=== PATIENT | female | born 1985 | race Caucasian/White ===

== ENCOUNTER 2021-01-04 15:16 | Emergency (ER) | payer OTHER, SELFPAY ==
--- NOTE | ~2021-01-04 | CT_ITS ---
EXAMINATION: CT abdomen pelvis wo con DATE: 01/04/2021 17:07 INDICATION: Right flank pain. Urinary frequency. TECHNIQUE: Computed tomography (CT) of the abdomen and pelvis was performed without intravenous contr ast. Automated exposure control and iterative reconstruction technique were employed. Exam dose: 177 .83 mGy-cm total exam DLP. COMPARISON: None. FINDINGS: The lung bases are clear of infiltrate or consolidation. Normal heart size. No pericardial or pleural effusion. The liver, gallbladder, bile ducts, spleen, pancreas and pancreatic duct are unremarkable. There is asymmetric right renal enlargement with perinephric stranding, suggesting right pyelonephrit is. No apparent renal mass lesion is noted on this limited noncontrast examination. No ureteral calculus or hydroureteronephrosis is detected. Normal caliber of the abdominal aorta. No intraperitoneal or retroperitoneal or pelvic mass lesion o r lymphadenopathy. The urinary bladder and uterus and adnexal areas are unremarkable. There is mild free fluid in the pelvic cul de sac. No evidence of appendicitis. No bowel obstruction or intraperitoneal free air. Included skeletal structures are unremarkable. IMPRESSION: Right nephromegaly and right perinephric stranding, suggesting right pyelonephritis Reviewed, dictated and finalized at [facility]. Reviewed, dictated and finalized at [facility]. IMPRESSION: Right nephromegaly and right perinephric stranding, suggesting rig ht pyelonephritis
[2021-01-04 15:19] VITALS: BP 124/88; PULSE 98; RESP 18; TEMP 37.3; O2SAT 99
[2021-01-04 15:38] LABS: Basophils Percent Auto 0.4 % (0.2-1.2); Eosinophils Percent Auto 0.2 % (0-4.4); Hematocrit 41.7 % (37.0-47.0); Hemoglobin 14.5 g/dL (12.0-15.0); Immature Granulocyte Absolute 0.02 K/mm3 (0.00-0.031); Immature Granulocyte Percent A 0.2 % (0-0.5); Lymphocytes Absolute Auto 0.86 K/mm3 (0.9-3.2); Lymphocytes Percent Auto 8.6 % (18.3-44.2); Mean Corpuscular HGB Conc 34.8 g/dl (32-36); Mean Corpuscular Hemoglobin 32.5 pg (26-34); Mean Corpuscular Volume 93.5 fl (80-100); Mean Platelet Volume 9.4 fl (7.4-10.4); Monocytes Percent Auto 9.8 % (2.6-8.5); Neutrophils Absolute Auto 8.1 K/mm3 (1.3-6.7); Neutrophils Percent Auto 80.8 % (45.5-73.1); Platelet Count Result 226 k/mm3 (150-375); Red Blood Count 4.46 M/mm3 (4.2-5.4)
[2021-01-04 15:47] LABS: Add Urine Microscopic? YES; Appearance Urine Clear (Clear); Bacteria Urine Trace /hpf; Bilirubin Urine Negative (Negative); Blood Urine 3+ (Negative); Color Urine Yellow (Yellow); Glucose Urine UA Negative (Negative); Ketones Urine Negative (Negative); Leukocyte Esterase Ur 1+ LEU/UL (Negative); Mucus Urine Rare /lpf; Nitrate Urine Negative (Negative); Protein Urine Negative (Negative); RBC Urine 21-50 /hpf (0-2); Specific Grav Ur 1.011 (1.001-1.035); Squamous Epithelial Cell Urine Moderate /hpf (Few); Urobilinogen Urine Negative mg/dL (<2.0)
[2021-01-04 15:51] LABS: Anion Gap 12 mmol/L (8-16); Blood Urea Nitrogen 8 mg/dL (7-17); Carbon Dioxide 22 mmol/L (22-30); Chloride 98 mmol/L (98-107); Estimated CRCL calculation 103 ml/min; Estimated Glomerular Filt Rate > 60; Glucose 136 mg/dL (65-110); Potassium 3.9 mmol/L (3.4-5.0); Sodium 132 mmol/L (137-145)
--- NOTE | 2021-01-04 16:19 | ED.ABDPAIN ---
HPI - Abdominal Pain General Chief Complaint: Abdominal Pain Stated Complaint: flank pain, fever Time Seen by Provider: 01/04/21 16:19 History of Present Illness HPI narrative: Healthy 35 y/o female presents to the ED c/o UTI. She reports that she had dysuria, frequency and urgency a few days ago. She took Macrobid that a friend gave her. She no longer has these symptoms, but she di develop. Fever up to 101, nausea, and right flank pain. The flank pain is mild-moderate. Additionally she reports intermittent SOB, she believe that is related to the flank pain. Related Data Allergies Allergy/AdvReac Type Severity Reaction Status Date / Time No Known Allergies Verified 01/04/21 16:18 Review of Systems Review of Systems: All systems reviewed & are unremarkable except as noted in HPI and below Constitutional: Constitutional: Reports chills, Reports fatigue and Reports fever(s) Cardiovascular: Cardiovascular: Denies chest pain Respiratory: Respiratory: Denies cough and Reports dyspnea Gastrointestinal: Gastrointestinal: Reports abdominal pain, Denies constipation, Denies diarrhea, Reports nausea and Denies vomiting Genitourinary: Genitourinary: Reports no additional female genitourinary complaints Neurologic: Reports system reviewed and no additional complaints, except as documented PMFSH Past Medical History Medical History Encounter for gynecological examination (general) (routine) without abnormal findings History of vaginal delivery x 2 Family History Family History Father Diabetes mellitus Grandparent Diabetes mellitus Social History Social History Smoking status: Never smoker Second hand tobacco smoke exposure: No Alcohol intake: current Exam Const: General: healthy appearing, no acute distress and alert Orientation/consciousness: patient oriented x3 HENMT: Head: normal to inspection Neck: Neck: normal visual inspection and no lymphadenopathy Chest: Chest palpation & inspection: no tenderness Resp: Effort & Inspection: normal respiratory effort Auscultation: clear to auscultation bilaterally, no rales, no rhonchi and no wheezes Cardio: Jugular venous distension: no JVD Rate: regular rate Rhythm: regular rhythm Heart sounds: no murmurs GI: Inspection: non-distended GI Palp: Yes Soft to palpation and No Tenderness to palpation present (GI) : General: Yes no CVA tenderness Skin: General skin exam: normal color Neuro: General: patient oriented x3 and moves all extremities Speech: normal speech Extrem: General: no edema Psych: Appearance: well kempt Affect: normal affect Course Vital Signs Vital signs: Vital Signs Temperature 37.3 C 01/04/21 15:19 Pulse Rate 98 01/04/21 15:19 Respiratory Rate 18 01/04/21 15:19 Blood Pressure 124/88 01/04/21 15:19 Pulse Oximetry 99 01/04/21 15:19 Temperature 37.3 C 01/04/21 15:19 Pulse Rate 98 01/04/21 15:19 Respiratory Rate 18 01/04/21 15:19 Blood Pressure 124/88 01/04/21 15:19 Pulse Oximetry 99 01/04/21 15:19 MDM - Abdominal Pain MDM Narrative Medical decision making narrative: Pyelonephritis on CT. She appears well with no Leukocytosis and stable vitals. She is a good candidate for outpatient treatment. Differential Diagnosis Differential diagnosis: Likely calculus of kidney, diverticulitis and other (COVID, pyelonephritis) Medical Records Attestation: I reviewed the patient's medical records. Lab Data Attestation: I reviewed the patient's lab results. Result diagrams: 01/04/21 15:23 01/04/21 15:23 Labs: Lab Results 01/04/21 01/04/21 01/04/21 Range/Units 15:23 15:23 15:34 WBC 10.0 (4.5-10.0) K/mm3 RBC 4.46 (4.2-5.4) M/mm3 Hgb 14.5 (12.0-15.0) g/dL Hct 41.7 (3
[2021-01-04 17:57] LABS: EDCOVIDSCREEN Negative (Negative)
[2021-01-04] MEDS: CEFDINIR 300 MG CAPSULE PO (18:10)
== END 2021-01-04 18:26 | disposition home or self-care (01) ==
PROVIDERS: Emergency Medicine; Emergency Provider Emergency Medicine
DX: N12 Tubulo-interstitial nephritis, not specified as acute or chronic (principal); Z20.822 Contact with and (suspected) exposure to COVID-19
CPT/HCPCS: 36415; 74176; 80048; 81001; 81025; 85025; 87086; 87088; 87426; 99284; A9270; C9803

== ENCOUNTER 2025-02-17 09:03 | Emergency (ER) | payer OTHER, SELFPAY ==
--- NOTE | ~2025-02-17 | XR_ITS ---
Examination: XR chest 2V Clinical History: LT SIDED CP SINCE FRIDAY Comparison: None Technique: PA and Lateral Findings: Cardiomediastinal silhouette normal size and configuration. Lungs clear. No acute bony abnormality. Breast implants. IMPRESSION: 1. No acute cardiopulmonary findings. Reviewed, dictated and finalized at [facility].
--- NOTE | ~2025-02-17 | CT_ITS ---
EXAMINATION: CTA chest PE protocol DATE: 02/17/2025 11:55 INDICATION: Left-sided chest pain. Elevated d-dimer. TECHNIQUE: Computed tomography (CT) pulmonary angiogram of the chest was performed with 100 mL Omnipaque-350 intravenous contrast. Additional 3D reconstructions utilizing coronal maximum intensity projection (MIP) were performed. Automated exposure control and iterative reconstruction technique were employed. The dose-length product was 219.22 mGy-cm. COMPARISON: CT abdomen pelvis dated 01/04/2021 FINDINGS: No pulmonary embolism. Mild dependent atelectasis in the bilateral lower lobes. No pneumonia, pulmonary edema, pleural effusion or pneumothorax. Heart size is normal. No pericardial effusion. Thoracic aorta is normal in caliber with no dissection. No pathologically enlarged thoracic lymphadenopathy. No pneumomediastinum. There is soft tissue gas surrounding bilateral breast implants tracking laterally along the bilateral pectoralis major muscles and extending caudally along the anterior chest wall at the inferior costal margin. Per discussion with Dr. Alexander the breast augmentation was performed less than one week prior and this likely represents residual postoperative gas. No evident abscess. Visualized upper abdomen is unremarkable. Mild thoracic spondylosis with chronic likely physiologic mild anterior wedging at T11 and T12. IMPRESSION: 1. No pulmonary embolism or other acute cardiopulmonary disease. 2. Soft tissue gas in the anterior chest wall likely related to recent placement bilateral breast implants. Reviewed, dictated and finalized at [facility]. IMPRESSION: 1. No pulmonary embolism or other acute cardiopulmonary disease. 2. Soft tissue gas in the anterior chest wall likely related to recent placemen t bilateral breast implants.
--- NOTE | 2025-02-17 09:04 | ECG_ITS ---
Test Date: 2025-02-17 09:20:31 Measurements Intervals [place] Rate: 69 P: 74 OK: 149 QRS: 74 QRSD: 67 T: 60 QT: 346 QTc: 373 Interpretive Statements SINUS RHYTHM POSSIBLE LEFT ATRIAL ENLARGEMENT ANTEROSEPTAL INFARCT, AGE INDETERMINATE ABNORMAL ECG No previous ECG available for comparison Electronically Signed On 02-17-2025 10:11:08 CDT by Glenn Nielsen D.O.
[2025-02-17 09:12] VITALS: BP 136/74; PULSE 87; RESP 18; TEMP 36.5; O2SAT 100
[2025-02-17 09:35] LABS: Hematocrit 40.8 % (37.0-47.0); Hemoglobin 14.1 g/dL (12.0-15.0); Immature Granulocyte Percent A 0.3 % (0-0.5); Lymphocytes Absolute Auto 1.50 K/mm3 (0.9-3.2); Mean Corpuscular HGB Conc 34.6 g/dl (32-36); Mean Corpuscular Hemoglobin 32.0 pg (26-34); Mean Corpuscular Volume 92.5 fl (80-100); Nucleated Red Blood Cells Absolute Auto 0.000 K/mm3 (0.0-0.012); Nucleated Red Blood Cells Perc 0.0 % (0.0-0.2); Platelet Count Result 243 k/mm3 (150-375); Red Blood Count 4.41 M/mm3 (4.2-5.4); White Blood Count 9.3 K/mm3 (4.5-10.0)
[2025-02-17 09:46] LABS: INR 1.2; Prothrombin Time 15.0 Seconds (11.1-14.7)
[2025-02-17 09:47] LABS: Alanine Aminotransferase 21 U/L (6-35); Albumin Level 4.5 g/dL (3.5-5.1); Alkaline Phosphatase 66 U/L (38-126); Anion Gap 10 mmol/L (4-12); Aspartate Amino Transferase 31 U/L (14-36); Bilirubin,Total 1.0 mg/dL (0.2-1.3); Blood Urea Nitrogen 10 mg/dL (7-17); Calcium 10.1 mg/dL (8.4-10.2); Carbon Dioxide 26 mmol/L (22-30); Chloride 100 mmol/L (98-107); Estimated CRCL calculation 98 ml/min; Estimated Glomerular Filt Rate > 60; Glucose 102 mg/dL (65-110); Lipase 80 U/L (23-300); Partial Thromboplastin Time 36.9 Seconds (22.3-36.8); Potassium 3.9 mmol/L (3.4-5.0); Sodium 136 mmol/L (137-145); Total Protein 7.7 g/dL (6.3-8.2)
[2025-02-17 09:58] LABS: Troponin I < 0.012 ng/mL (0.000-0.034)
[2025-02-17 10:59] VITALS: BP 154/87; PULSE 61; RESP 16; O2SAT 100
[2025-02-17 11:02] VITALS: O2SAT 100
[2025-02-17 11:04] VITALS: PULSE 64
--- NOTE | 2025-02-17 11:42 | ED_ITS ---
HPI - General Adult General Chief complaint: Chest Pain Stated complaint: chest pain Time Seen by Provider: 02/17/25 10:43 History of Present Illness HPI narrative: 39-year-old female presents to the emergency department for evaluation for left- sided chest pain that has been ongoing since Friday. Patient did have breast augmentation on Friday. Patient states she has been having worsening pain with deep inspiration but also with eating. Patient does report some pain with swallowing. Patient denies any other significant past medical history. Patient had been prescribed a number of supportive medications but patient has stopped all these medications including the doxycycline. Related Data Allergies Allergy/AdvReac Type Severity Reaction Status Date / Time No Known Allergies Allergy Verified 02/17/25 11:10 Review of Systems 2 Review of Systems: All systems reviewed & are unremarkable except as noted in HPI and below PMFSH Past Medical History Medical History (Updated 02/17/25 @ 12:45 by Vaughn Alexander MD) History of vaginal delivery x 2 Encounter for gynecological examination (general) (routine) without abnormal findings Surgical History Surgical History [place] teeth removed 09/29 Family History Family History Father Diabetes mellitus Grandparent Diabetes mellitus Social History Social History Smoking status: Never smoker Second hand tobacco smoke exposure: No Alcohol intake: current Exam 2 Narrative: APPEARANCE: Well appearing, no pain, no distress, well-nourished. HEAD: normocephalic, atraumatic. EYES: PERRLA/EOMI, conjunctivae clear. NOSE: Normal no drainage EARS:TMS clear with good light reflex. THROAT: Pharynx clear, no exudate. NECK: Supple. No adenopathy, no masses. RESPIRATORY: Airway patent, respirations nonlabored. Clear to auscultation bilaterally, no rales, rhonchi, wheezing. CARDIOVASCULAR: Regular rate and rhythm without murmurs rubs or gallops. ABDOMINAL: Epigastric tenderness to palpation MUSCULOSKELETAL: Moves all extremities. Strength/ROM intact, No edema, No calf tenderness. NEURO: Alert. Cranial nerves II through XII intact. Good gait. Good coordination SKIN: Warm, dry. Normal Color Course Vital Signs Vital signs: Vital Signs Temperature 97.7 F 02/17/25 09:12 Pulse Rate 87 02/17/25 09:12 Respiratory Rate 18 02/17/25 09:12 Blood Pressure 136/74 02/17/25 09:12 Pulse Oximetry 100 02/17/25 09:12 Oxygen Delivery Room Air 02/17/25 09:12 Temperature 97.7 F 02/17/25 09:12 Pulse Rate 76 02/17/25 12:31 Respiratory Rate 20 02/17/25 12:31 Blood Pressure 154/87 H 02/17/25 10:59 Pulse Oximetry 100 02/17/25 12:31 Oxygen Delivery Room Air 02/17/25 11:02 Medical Decision Making MDM Narrative Medical decision making narrative: 39-year-old female presents to the emergency department for evaluation for left- sided chest pain. Patient is currently afebrile with no leukocytosis hemoglobin of 14.1. Patient has INR of 1.2 and an elevated D-dimer of 0.79. This is most likely due to recent surgery but CTA was ordered to evaluate for pulmonary embolism. CTA showed no pulmonary embolism other acute cardiopulmonary disease. Soft tissue gas in the anterior chest wall leuk most likely related to recent placement bilateral breast implants. Patient's EKG showed normal sinus rhythm. Troponin showed no elevation. Patient's lipase was also negative. Patient was treated with IV Protonix and a GI cocktail on re-evaluation patient states she does feel improved. Patient family were updated on the results of the workup and plan for treatment for home. Patient was advised to follow a bland diet, avoid alcohol avoid NSAIDs and to take omeprazole for the next 14 days. Patient also be provided follow-up with GI. All questions concerns were addressed patient was well-appearing at time of discharge. Differential Diagnosis Differential Diagnosis: Pneumonia, pulmonary embolism, infection, necrotizing fasciitis, gastritis, esophagitis coronary disease Vital Signs Vital Signs: Vital Signs Temperature 97.7 F 02/17/25 09:12 Pulse Rate 87 02/17/25 09:12 Respiratory Rate 18 02/17/25 09:12 Blood Pressure 136/74 02/17/25 09:12 Pulse Oximetry 100 02/17/25 09:12 Oxygen Delivery Room Air 02/17/25 09:12 Temperature 97.7 F 02/17/25 09:12 Pulse Rate 76 02/17/25 12:31 Respiratory Rate 20 02/17/25 12:31 Blood Pressure 154/87 H 02/17/25 10:59 Pulse Oximetry 100 02/17/25 12:31 Oxygen Delivery Room Air 02/17/25 11:02 Lab Data Lab results reviewed: Yes I reviewed the patient's lab results. 02/17/25 09:29 02/17/25 09:29 Labs: Lab Results 02/17/25 02/17/25 Range/Units 09: 11:59 WBC 9.3 (4.5-10.0) K/mm3 RBC 4.41 (4.2-5.4) M/mm3 Hgb 14.1 (12.0-15.0) g/dL Hct 40.8 (37.0-47.0) % MCV 92.5 (80-100) fl MCH 32.0 (26-34) pg MCHC 34.6 (32-36) g/dl RDW 11.9 (11.5-14.5) % Plt Count 243 (150-375) k/mm3 MPV 9.4 (7.4-10.4) fl Immature Gran % (Auto) 0.3 (0-0.5) % Neut % (Auto) 73.3 H (45.5-73.1) % Lymph % (Auto) 16.2 L (18.3-44.2) % Dickenson % (Auto) 8.2 (2.6-8.5) % Eos % (Auto) 1.6 (0-4.4) % Baso % (Auto) 0.4 (0.2-1.2) % Lymph # (Auto) 1.50 (0.9-3.2) K/mm3 Dickenson # (Auto) 0.8 H (0.1-0.6) K/mm3 Eos # (Auto) 0.2 (0-0.3) K/mm3 Baso # (Auto) 0.0 (0.0-0.1) K/mm3 Abs Immat Gran (auto) 0.03 (0.00-0.031) K/mm3 Absolute Neuts (auto) 6.8 H (1.3-6.7) K/mm3 Absolute Nucleated RBC 0.000 (0.0-0.012) K/mm3 Nucleated RBC % 0.0 (0.0-0.2) % PT 15.0 H (11.1-14.7) Seconds INR 1.2 APTT 36.9 H (22.3-36.8) Seconds D-Dimer 0.79 H (<0.48) ug/mL Sodium 136 L (137-145) mmol/L Potassium 3.9 (3.4-5.0) mmol/L Chloride 100 (98-107) mmol/L Carbon Dioxide 26 (22-30) mmol/L Anion Gap 10 (4-12) mmol/L BUN 10 (7-17) mg/dL Creatinine 0.61 L (0.7-1.0) mg/dL Estim Creat Clear Calc 98 ml/min Estimated GFR > 60 (59 - ) Glucose 102 (65-110) mg/dL Calcium 10.1 (8.4-10.2) mg/dL Total Bilirubin 1.0 (0.2-1.3) mg/dL AST 31 (14-36) U/L ALT 21 (6-35) U/L Alkaline Phosphatase 66 (38-126) U/L Troponin I < 0.012 < 0.012 (0.000-0.034) ng/mL Total Protein 7.7 (6.3-8.2) g/dL Albumin 4.5 (3.5-5.1) g/dL Lipase 80 (23-300) U/L Imaging Data Radiologist's impression: Impressions Chest X-Ray 02/17/25 09:41 IMPRESSION: 1. No acute cardiopulmonary findings. Chest CTA 02/17/25 12:00 IMPRESSION: 1. No pulmonary embolism or other acute cardiopulmonary disease. 2. Soft tissue gas in the anterior chest wall likely related to recent placement bilateral breast implants. Discharge Plan Discharge Clinical Impression: Esophagitis, Gastritis, Left-sided chest pain Patient Disposition: Home Condition: Stable Instructions: Antibiotic Form, Gastritis (DC), Diet for Stomach Ulcers and Gastritis (ED) Additional Instructions: Avoid alcohol and avoid NSAIDs. Follow a bland diet. Take omeprazole daily for the next 14 days. Maalox as needed for intermittent epigastric or gastric pain. Have close follow-up with GI. If you have any worsening symptoms then please call or return to the emergency department. Patient Language: [place] Island[place] Prescriptions: New ondansetron 4 mg tablet,disintegrating 4 mg PO Q8H PRN (Reason: nausea and vomiting) Qty: 14 0RF Follow-up/Referrals: PHYSICIAN,CHOIR SINGER [Primary Care Provider, Internal Medicine] Issac Zimmerman MD [Physician, Gastroenterology]
[2025-02-17] MEDS: PANTOPRAZOLE SODIUM IV 40 MG VIAL IV PUSH (12:19)
[2025-02-17] MEDS: BELLADONNA ALK/PHENOB ELIX 10 ML, MAG HYDROX/ALUMINUM HYD/SIMETH 30 ML, LIDOCAINE 2% VI... PO (12:19)
[2025-02-17 12:31] VITALS: PULSE 76; RESP 20; O2SAT 100
[2025-02-17 12:33] LABS: Troponin I < 0.012 ng/mL (0.000-0.034)
== END 2025-02-17 13:11 | disposition home or self-care (01) ==
PROVIDERS: Emergency Provider Emergency Medicine
DX: K29.70 Gastritis, unspecified, without bleeding (principal); K20.90 Esophagitis, unspecified without bleeding; R07.9 Chest pain, unspecified; Z98.82 Breast implant status; Z98.890 Other specified postprocedural states
CPT/HCPCS: 36415; 71046; 71275; 80053; 83690; 84484; 85025; 85380; 85610; 85730; 93005; 96374; 99284; A9270; J2470; Q9967